=== PATIENT | female | born 1990 | race Hispanic/Latino ===

== ENCOUNTER 2021-10-28 13:25 | Inpatient (IN) | payer BC ==
[~2021-10-28 13:25] MED LIST: Bupivacaine 0.25% HCL 30 ML VIAL ONE
[2021-10-28] MEDS ORDERED: Ondansetron PF 4 MG/2 ML Vial IVP PRN ×2 (13:52→15:15)
[2021-10-28] MEDS ORDERED: Misoprostol 200 MCG TAB PR PRN (13:52)
[2021-10-28] MEDS ORDERED: Carboprost 250 MCG/ML AMP IM PRN (13:52)
[2021-10-28] MEDS ORDERED: Acetaminophen 500 MG TAB PO PRN (13:52)
[2021-10-28] MEDS ORDERED: Promethazine HCl 25 MG/ML VIAL IM PRN ×2 (13:52→15:15)
[2021-10-28] MEDS ORDERED: Ibuprofen 800 MG TAB PO PRN (13:52)
[2021-10-28] MEDS ORDERED: hydrALAZINE 20 MG/ML VIAL SLOW IVP PRN (13:52)
[2021-10-28] MEDS ORDERED: Diphenoxylate HCl/Atropine Tablet PO PRN ×2 (13:52)
[2021-10-28] MEDS ORDERED: Lidocaine 1% (PF) 30 ML VIAL SC PRN (13:52)
[2021-10-28] MEDS ORDERED: Methylergonovine 0.2 MG/ML VIAL IM PRN (13:52)
[2021-10-28] MEDS: Lactated Ringer's 1,000 ML IV SCH ×2 (14:00→15:55)
[2021-10-28] MEDS ORDERED: NS w/ Oxytocin 30 units 500 ML IV SCH (14:00)
[2021-10-28] MEDS ORDERED: Fentanyl 2 mcg/Bup 0.1% Cadd 100 ML ONE (14:13)
[2021-10-28 14:17] LABS: Hemoglobin 12.6 g/dL (12.0-15.5); Mean Corpuscular HGB CONC 32.4 g/dL (32.0-36.0); Mean Corpuscular Hemoglobin 27.6 pg (27.0-33.0); Mean Corpuscular Volume 85.3 fl (81.6-98.3); Mean Platelet Volume 10.4 fl (7.4-10.4); Platelet Count 242 10x3/uL (150-450); RBC Distribution Width 17.5 % (11.5-14.5); Red Blood Cell (RBC) Count 4.56 10x6/uL (3.90-5.03); White Blood Cell (WBC) Count 16.4 10x3/uL (3.5-10.5)
[2021-10-28 14:49] LABS: HIV (1/2) Antibody/Antigen Non-Reactive (NonReactive); HIV 1/2 INDEX 0.15 S/CO (<1.00); Hep B Surf Ag Non-Reactive S/CO (NonReactive); Syphilis Antibody Nonreactive (Nonreactive); Syphilis Antibody Index 0.02 S/CO (<1.00 Non-Reactive)
[2021-10-28] MEDS ORDERED: ePHEDrine Sulfate 50 MG/10 ML VIAL SLOW IVP PRN (15:15)
[2021-10-28] MEDS ORDERED: Communication Order-Pharmacy FS SCH (15:15)
[2021-10-28] MEDS ORDERED: Fentanyl 2 mcg/Bupivacaine 0.1% Cassette 100 ML EPIDURAL SCH (15:15)
[2021-10-28] MEDS ORDERED: Hydrocerin (Eucerin) Cream 120 gm Jar TOP PRN (15:15)
[2021-10-28] MEDS ORDERED: Acetaminophen 325 MG TAB PO PRN (15:15)
[2021-10-28] MEDS ORDERED: Naloxone HCl 0.4 mg/ml Vial IVP PRN ×2 (15:15)
[2021-10-28] MEDS ORDERED: Lactated Ringer's 500 ML IV PRN (15:15)
[2021-10-28] MEDS ORDERED: diphenhydrAMINE 50 MG/ML VIAL IVP PRN (15:15)
[2021-10-28 15:52] VITALS: BMI 30.5
[2021-10-28 15:54] LABS: HBSAg Index 0.21 S/CO (0-0.99)
[2021-10-28 16:48] LABS: SARS-CoV-2 NAA Rapid Test Not Detected (NotDetected)
[2021-10-28] MEDS: NS w/ Oxytocin 30 units 500 ML IV SCH ×2 (17:13→21:20)
[2021-10-29] MEDS ORDERED: Bisacodyl 10 MG SUPP PR PRN (03:35)
[2021-10-29] MEDS ORDERED: Benzocaine-Menthol 82.5 ML CAN TOP PRN (03:35)
[2021-10-29] MEDS ORDERED: hydrALAZINE 20 MG/ML VIAL SLOW IVP PRN (03:35)
[2021-10-29] MEDS ORDERED: Boostrix 0.5 ML (Tdap) VIAL IM ONE (03:35)
[2021-10-29] MEDS ORDERED: Milk Of Magnesia 30 ML UDCUP PO PRN (03:35)
[2021-10-29] MEDS ORDERED: Ondansetron PF 4 MG/2 ML Vial IVP PRN (03:35)
[2021-10-29] MEDS ORDERED: Promethazine HCl 25 MG/ML VIAL IM PRN (03:35)
[2021-10-29] MEDS ORDERED: Preparation H Ointment 28 GM TUBE PR PRN (03:35)
[2021-10-29] MEDS ORDERED: Lanolin Ointment 7 GM TUBE TOP PRN (03:35)
[2021-10-29] MEDS ORDERED: diphenhydrAMINE 25 MG CAP PO PRN (03:35)
[2021-10-29] MEDS: Ibuprofen 800 MG TAB PO SCH ×3 (05:03→21:31)
[2021-10-29] MEDS: Ferrous Sulfate 325 MG TAB PO SCH ×2 (08:45→16:08)
[2021-10-29] MEDS: Prenatal Vitamin 1 TAB PO SCH (08:51)
[2021-10-29] MEDS: Docusate 100 MG CAP PO SCH ×2 (08:52→21:32)
[2021-10-30] MEDS: Ibuprofen 800 MG TAB PO SCH (05:39)
[2021-10-30 08:11] VITALS: BP 96/51; TEMP 97.9
[2021-10-30] MEDS: Docusate 100 MG CAP PO SCH (08:36)
[2021-10-30] MEDS: Ferrous Sulfate 325 MG TAB PO SCH (08:36)
[2021-10-30] MEDS: Prenatal Vitamin 1 TAB PO SCH (08:36)
== END 2021-10-30 10:35 | disposition home or self-care (01) | DRG 807 ==
LOC: CSHLD/OP 13:25 → CSHLD 19:16 → CSHPP 23:26
PROVIDERS: ADMIT Student in an Organized Health Care Education/Training Program; ATTEND Student in an Organized Health Care Education/Training Program
PROC: 10907ZC Drainage of Amniotic Fluid, Therapeutic from Products of Conception, Via Natural or Artificial Opening (ICD-10-PCS; 2021-10-28)
PROC: 10H07YZ Insertion of Other Device into Products of Conception, Via Natural or Artificial Opening (ICD-10-PCS; 2021-10-28)
PROC: 10E0XZZ Delivery of Products of Conception, External Approach (ICD-10-PCS; principal; 2021-10-29)
PROC: 0HQ9XZZ Repair Perineum Skin, External Approach (ICD-10-PCS; 2021-10-29)
DX: O34.211 Maternal care for low transverse scar from previous cesarean delivery (principal); Z37.0 Single live birth; Z3A.39 39 weeks gestation of pregnancy; Z20.822 Contact with and (suspected) exposure to COVID-19; O76 Abnormality in fetal heart rate and rhythm complicating labor and delivery; O70.0 First degree perineal laceration during delivery
CPT/HCPCS: 51702; 85027; 86762; 86780; 86850; 86900; 86901; 87340; 87389; 99285; J2001; J2405; J2590; S0020; U0002